=== PATIENT | male | born 1945 | race American Indian/Alaskan Native ===

== ENCOUNTER 2018-10-01 04:49 | Inpatient (IN) | payer MEDICARE ==
--- NOTE | 2018-10-01 05:10 | Emergency Department Report ---
ED Neuro Deficit HPI - General Chief Complaint: Neuro Symptoms/Deficit Stated Complaint: POSS CVA Time Seen by Provider: 10/01/18 05:09 Source: family Mode of arrival: Stretcher Limitations: Altered Mental Status - History of Present Illness Initial Comments: According to patient's , patient was last seen normal at 10:30 PM when the went to bed. This morning she woke up around 5am and noted that the patient was on the floor unable to move or talk. There was said that she slept in a different room and did not see when the patient felt to the floor. EMS was called and patient was brought to the emergency room as a code stroke. Patient is aphasic and could not give any medical history. -: Sudden Location: right arm, right leg, other (aphesia) Presenting Symptoms: Present: Weak/Paralyzed One Side, Altered Mental Status History of same: No Place: home Severity: severe Quality: constant Improves With: none Worsens With: none On Anticoagulants: No Context: sudden onset Associated Symptoms: denies other symptoms Treatments Prior to Arrival: none - Related Data Home Medications: Home Medications Medication Instructions Recorded Confirmed Last Taken Lisinopril 20 mg PO DAILY 10/01/18 10/01/18 Unknown metFORMIN 1 gm PO DAILY 10/01/18 10/01/18 Unknown Allergies/Adverse Reactions: Allergies Allergy/AdvReac Type Severity Reaction Status Date / Time No Known Allergies Allergy Unverified 10/01/18 04:51 ED Review of Systems ROS: Stated complaint: POSS CVA Other details as noted in HPI Comment: Unobtainable due to pts medical conditions (Aphesia and altered mental status.) ED Past Medical Hx - Past Medical History Hx Hypertension: Yes Hx Diabetes: Yes Additional medical history: BPH - Surgical History Past Surgical History?: No - Social History Smoking Status: Never Smoker Substance Use Type: None - Medications Home Medications: Home Medications Medication Instructions Recorded Confirmed Last Taken Type Lisinopril 20 mg PO DAILY 10/01/18 10/01/18 Unknown History metFORMIN 1 gm PO DAILY 10/01/18 10/01/18 Unknown History ED Neuro Physical Exam - General Limitations: Altered Mental Status, Physical Limitation (Aphesia) General appearance: alert Suspected Stroke: Yes - Head Head exam: Present: atraumatic - Eye Eye exam: Present: normal appearance, PERRL - ENT ENT exam: Present: mucous membranes moist - Neck Neck exam: Present: normal inspection, full ROM - Respiratory Respiratory exam: Present: normal lung sounds bilaterally. Absent: respiratory distress, wheezes - Cardiovascular Cardiovascular Exam: Present: normal rhythm, tachycardia, normal heart sounds - GI/Abdominal GI/Abdominal exam: Present: soft, normal bowel sounds. Absent: distended, tenderness, guarding, rebound - Extremities Exam Extremities exam: Present: normal inspection, normal capillary refill, other (Right sided paralysis.) - Back Exam Back exam: Present: normal inspection - Neurological Exam Neurological exam: Present: alert - NIHSS Assessment Interval: Baseline 1a. Level of Consciousness: alert/keenly responsive 1b. LOC Questions: aphasic 1c. LOC Commands: performs 1 task correctly 2. Best Gaze: forced deviation 3. Visual: complete hemianopia 4. Facial Palsy: minor paralysis 5b. Motor Arm Right: no movement 5a. Motor Arm Left: no drift 6a. Motor Leg Left: no movement 6b. Motor Leg Right: drift 7. Limb Ataxia: present 1 limb 8. Sensory: severe/total sensory loss 9. Best Language: mute/global aphasia 10. Dysarthria: mute/anarrthric 11. Extinction/Inattention: complete neglect Total Score: 27 Stroke Severity: Severe Stroke - Psychiatric Psychiatric exam: Present: flat affect - Skin Skin exam: Present: warm, dry, intact ED Course Vital Signs 10/01/18 10/01/18 10/01/18 04:53 05:04 05:15 Temperature 98 F Pulse Rate 102 H 102 H Respiratory 14 16 Rate Blood Pressure 182/119 173/122 O2 Sat by Pulse 98 77 L 95 Oximetry 10/01/18 10/01/18 10/01/18 05:30 05:42 05:45 Temperature Pulse Rate 105 H 103 H Respiratory 19 16 21 Rate Blood Pressure 171/120 155/115 O2 Sat by Pulse 99 100 99 Oximetry - Consultations Consultation #1: 10/01/18 05:17 I consulted the teleneurologist sales development consultant Dr Caballero. He recommend NO TPA since patient is out of the window for TPA. He wants patient to be given Aspirin [place] and admitted to the hospitalist for inpatient management. 10/01/18 06:16 10/01/18 06:22 Consultation #2: 10/01/18 06:15 Patient will be admitted by Dr Aleman. - Lab Data Result diagrams: 10/01/18 05:20 10/01/18 05:20 Lab Results 10/01/18 10/01/18 10/01/18 Range/Units 05:20 05:20 05:20 WBC 9.6 (4.5-11.0) K/mm3 RBC 4.38 (3.65-5.03) M/mm3 Hgb 14.4 (11.8-15.2) gm/dl Hct 41.6 (35.5-45.6) % MCV 95 H (84-94) fl MCH 33 H (28-32) pg MCHC 35 H (32-34) % RDW 13.9 (13.2-15.2) % Plt Count 172 (140-440) K/mm3 Lymph % (Auto) 9.3 L (13.4-35.0) % [place] % (Auto) 4.8 (0.0-7.3) % Eos % (Auto) 0.0 (0.0-4.3) % Baso % (Auto) 0.5 (0.0-1.8) % Lymph # 0.9 L (1.2-5.4) K/mm3 [place] # 0.5 (0.0-0.8) K/mm3 Eos # 0.0 (0.0-0.4) K/mm3 Baso # 0.0 (0.0-0.1) K/mm3 Seg Neutrophils % 85.4 H (40.0-70.0) % Seg Neutrophils # 8.2 H (1.8-7.7) K/mm3 PT 13.7 (12.2-14.9) Sec. INR 0.99 (0.87-1.13) APTT 23.7 L (24.2-36.6) Sec. Thrombin Time (15.1-19.6) Sec. Sodium 139 (137-145) mmol/L Potassium 3.8 (3.6-5.0) mmol/L Chloride 100.5 (98-107) mmol/L Carbon Dioxide 25 (22-30) mmol/L Anion Gap 17 mmol/L BUN 12 (9-20) mg/dL Creatinine 0.8 (0.8-1.5) mg/dL Estimated GFR > 60 ml/min BUN/Creatinine Ratio 15 % Glucose 299 H (75-100) mg/dL Calcium 9.4 (8.4-10.2) mg/dL Total Bilirubin (0.1-1.2) mg/dL Direct Bilirubin (0-0.2) mg/dL AST (5-40) units/L ALT (7-56) units/L Alkaline Phosphatase (35-129) units/L Troponin T < 0.010 (0.00-0.029) ng/mL Total Protein (6.3-8.2) g/dL Albumin (3.9-5) g/dL Albumin/Globulin Ratio % 10/01/18 10/01/18 Range/Units 05:20 05:20 WBC (4.5-11.0) K/mm3 RBC (3.65-5.03) M/mm3 Hgb (11.8-15.2) gm/dl Hct (35.5-45.6) % MCV (84-94) fl MCH (28-32) pg MCHC (32-34) % RDW (13.2-15.2) % Plt Count (140-440) K/mm3 Lymph % (Auto) (13.4-35.0) % [place] % (Auto) (0.0-7.3) % Eos % (Auto) (0.0-4.3) % Baso % (Auto) (0.0-1.8) % Lymph # (1.2-5.4) K/mm3 [place] # (0.0-0.8) K/mm3 Eos # (0.0-0.4) K/mm3 Baso # (0.0-0.1) K/mm3 Seg Neutrophils % (40.0-70.0) % Seg Neutrophils # (1.8-7.7) K/mm3 PT (12.2-14.9) Sec. INR (0.87-1.13) APTT (24.2-36.6) Sec. Thrombin Time 17.8 (15.1-19.6) Sec. Sodium (137-145) mmol/L Potassium (3.6-5.0) mmol/L Chloride (98-107) mmol/L Carbon Dioxide (22-30) mmol/L Anion Gap mmol/L BUN (9-20) mg/dL Creatinine (0.8-1.5) mg/dL Estimated GFR ml/min BUN/Creatinine Ratio % Glucose (75-100) mg/dL Calcium (8.4-10.2) mg/dL Total Bilirubin 0.40 (0.1-1.2) mg/dL Direct Bilirubin < 0.2 (0-0.2) mg/dL AST 18 (5-40) units/L ALT 12 (7-56) units/L Alkaline Phosphatase 81 (35-129) units/L Troponin T (0.00-0.029) ng/mL Total Protein 7.5 (6.3-8.2) g/dL Albumin 4.3 (3.9-5) g/dL Albumin/Globulin Ratio 1.3 % Lab Results 10/01/18 10/01/18 10/01/18 Range/Units 05:20 05:20 05:20 WBC 9.6 (4.5-11.0) K/mm3 RBC 4.38 (3.65-5.03) M/mm3 Hgb 14.4 (11.8-15.2) gm/dl Hct 41.6 (35.5-45.6) % MCV 95 H (84-94) fl MCH 33 H (28-32) pg MCHC 35 H (32-34) % RDW 13.9 (13.2-15.2) % Plt Count 172 (140-440) K/mm3 Lymph % (Auto) 9.3 L (13.4-35.0) % [place] % (Auto) 4.8 (0.0-7.3) % Eos % (Auto) 0.0 (0.0-4.3) % Baso % (Auto) 0.5 (0.0-1.8) % Lymph # 0.9 L (1.2-5.4) K/mm3 [place] # 0.5 (0.0-0.8) K/mm3 Eos # 0.0 (0.0-0.4) K/mm3 Baso # 0.0 (0.0-0.1) K/mm3 Seg Neutrophils % 85.4 H (40.0-70.0) % Seg Neutrophils # 8.2 H (1.8-7.7) K/mm3 PT 13.7 (12.2-14.9) Sec. INR 0.99 (0.87-1.13) APTT 23.7 L (24.2-36.6) Sec. Thrombin Time (15.1-19.6) Sec. Sodium 139 (137-145) mmol/L Potassium 3.8 (3.6-5.0) mmol/L Chloride 100.5 (98-107) mmol/L Carbon Dioxide 25 (22-30) mmol/L Anion Gap 17 mmol/L BUN 12 (9-20) mg/dL Creatinine 0.8 (0.8-1.5) mg/dL Estimated GFR > 60 ml/min BUN/Creatinine Ratio 15 % Glucose 299 H (75-100) mg/dL Calcium 9.4 (8.4-10.2) mg/dL Total Bilirubin (0.1-1.2) mg/dL Direct Bilirubin (0-0.2) mg/dL AST (5-40) units/L ALT (7-56) units/L Alkaline Phosphatase (35-129) units/L Troponin T < 0.010 (0.00-0.029) ng/mL Total Protein (6.3-8.2) g/dL Albumin (3.9-5) g/dL Albumin/Globulin Ratio % 10/01/18 10/01/18 Range/Units 05:20 05:20 WBC (4.5-11.0) K/mm3 RBC (3.65-5.03) M/mm3 Hgb (11.8-15.2) gm/dl Hct (35.5-45.6) % MCV (84-94) fl MCH (28-32) pg MCHC (32-34) % RDW (13.2-15.2) % Plt Count (140-440) K/mm3 Lymph % (Auto) (13.4-35.0) % [place] % (Auto) (0.0-7.3) % Eos % (Auto) (0.0-4.3) % Baso % (Auto) (0.0-1.8) % Lymph # (1.2-5.4) K/mm3 [place] # (0.0-0.8) K/mm3 Eos # (0.0-0.4) K/mm3 Baso # (0.0-0.1) K/mm3 Seg Neutrophils % (40.0-70.0) % Seg Neutrophils # (1.8-7.7) K/mm3 PT (12.2-14.9) Sec. INR (0.87-1.13) APTT (24.2-36.6) Sec. Thrombin Time 17.8 (15.1-19.6) Sec. Sodium (137-145) mmol/L Potassium (3.6-5.0) mmol/L Chloride (98-107) mmol/L Carbon Dioxide (22-30) mmol/L Anion Gap mmol/L BUN (9-20) mg/dL Creatinine (0.8-1.5) mg/dL Estimated GFR ml/min BUN/Creatinine Ratio % Glucose (75-100) mg/dL Calcium (8.4-10.2) mg/dL Total Bilirubin 0.40 (0.1-1.2) mg/dL Direct Bilirubin < 0.2 (0-0.2) mg/dL AST 18 (5-40) units/L ALT 12 (7-56) units/L Alkaline Phosphatase 81 (35-129) units/L Troponin T (0.00-0.029) ng/mL Total Protein 7.5 (6.3-8.2) g/dL Albumin 4.3 (3.9-5) g/dL Albumin/Globulin Ratio 1.3 % - EKG Data -: EKG Interpreted by Ia EKG shows normal: sinus rhythm Rate: tachycardia (100) When compared to previous EKG there are: previous EKG unavailable Interpretation: nonspecific ST-T wave gladys 10/01/18 06:17 No STEMI. - Radiology Data Radiology results: report reviewed, image reviewed - Medical Decision Making Acute CVA. Uncontrolled Hypertension. - Core Measures AMI Core Measures Followed: Yes - Thrombolytic Inclusion/Exclusion Thrombolytic Exclusion Criteria: Symptom Onset > 3 Hours Thrombolytic Contraindications: Diastolic Pressure > 110 Critical Care Time: Yes Critical care time in (mins) excluding proc time.: 50 Critical care attestation.: If time is entered above; I have spent that time in minutes in the direct care of this critically ill patient, excluding procedure time. ED Disposition Clinical Impression: Uncontrolled hypertension, Poorly controlled diabetes mellitus, Acute right- sided weakness CVA (cerebral vascular accident) Qualifiers: CVA mechanism: unspecified Qualified Code(s): I63.9 - Cerebral infarction, unspecified Disposition: DC-09 OP ADMIT IP TO THIS HOSP Is pt being admited?: Yes Does the pt Need Aspirin: Yes Condition: Stable Instructions: Diabetes Mellitus Type 2 in Adults (ED), Hypertension (ED) Referrals: PRIMARY CARE, [Primary Care Provider] - 3-5 Days Time of Disposition: 06:20
--- NOTE | 2018-10-01 05:12 | Cat Scan Report ---
FINAL REPORT EXAM: CT HEAD/BRAIN WO CON HISTORY: neuro deficits < 6hrs or sx present upon awakening TECHNIQUE: Routine axial imaging was obtained of the brain without IV contrast. There are no previou s studies available for comparison. FINDINGS: There is effacement of the hi white matter junction in the left frontal and left temporal lobes wit h diminished attenuation compatible with an acute left MCA distribution nonhemorrhagic infarct. There is also an associated hyperdense left MCA sign. There is minimal mass effect on the left lateral gabby tricle. There is diminished attenuation of the periventricular white matter compatible with chronic i schemic white matter disease changes. The basal cisterns appear normal. There is age related volume l oss. The visualized sinuses are clear. The mastoid air cells are well pneumatized. The calvarium appe ars intact. IMPRESSION: Acute left middle cerebral artery distribution infarct in the left frontal and left temporal lobes wi thout associated hemorrhage. Minimal mass effect on the left lateral ventricle. Associated left hyperdense MCA sign. Chronic ischemic white matter disease changes also noted. The acute stroke findings were discussed with at 5:10 a.m. on 10/01/2018.
[2018-10-01 05:33] LABS: Basophils % (Auto) 0.5 % (0.0-1.8); Hematocrit 41.6 % (35.5-45.6); Hemoglobin 14.4 gm/dl (11.8-15.2); Lymphocytes # (Auto) 0.9 K/mm3 (1.2-5.4); Lymphocytes % (Auto) 9.3 % (13.4-35.0); Mean Corpuscular HGB Conc 35 % (32-34); Mean Corpuscular Volume 95 fl (84-94); Monocytes # (Auto) 0.5 K/mm3 (0.0-0.8); Monocytes % (Auto) 4.8 % (0.0-7.3); Platelet Count 172 K/mm3 (140-440); Red Blood Count 4.38 M/mm3 (3.65-5.03); Red Cell Distribution Width 13.9 % (13.2-15.2)
[2018-10-01 05:42] LABS: INR 0.99 (0.87-1.13)
[2018-10-01 05:43] LABS: Partial Thromboplastin Time 23.7 Sec. (24.2-36.6)
[2018-10-01 05:49] LABS: BUN/Creatinine Ratio 15; Blood Urea Nitrogen 12 mg/dL (9-20); Calcium 9.4 mg/dL (8.4-10.2); Hemolysis Index 19
[2018-10-01 05:53] LABS: Alanine Aminotransferase 12 units/L (7-56); Albumin 4.3 g/dL (3.9-5)
[2018-10-01 06:00] LABS: Bilirubin,Direct < 0.2 mg/dL (0-0.2)
[2018-10-01] MEDS ORDERED: ASPIRIN PR ONE ×3 (06:21→11:13)
[2018-10-01] MEDS ORDERED: D50W (25GM) Syringe IV PRN (06:51)
[2018-10-01] MEDS ORDERED: TYLENOL PR PRN (07:02)
[2018-10-01] MEDS ORDERED: NACL 0.9% 1000 ML 1,000 ML IV SCH (08:00)
[2018-10-01] MEDS ORDERED: NACL 0.9% 1000 ML 1,000 ML ONE ×2 (08:19→08:21)
[2018-10-01] MEDS ORDERED: HumuLIN R ONE ×3 (08:20→15:27)
[2018-10-01] MEDS: HumuLIN R SUB-Q SCH ×5 (08:21→22:52)
--- NOTE | 2018-10-01 08:39 | History and Physical Report ---
CHIEF COMPLAINT: Change in mental status. OTHER COMPLAINT: Includes aphasia or loss of speech and inability to use the right side. HISTORY OF PRESENTING ILLNESS: The patient is a 73-year-old male who was noted by to be okay last night until early in the morning when the found him on the ground about 5 a.m. and unable to talk and unable to move his right side. There was no history of chest pain. There is no prior history of shortness of breath, fever, chills, nausea, vomiting or shortness of breath before the patient went to bed and the called EMS after she found the patient on the ground. EMS brought the patient to the Emergency Room where he was evaluated and subjected to tele neurology evaluation during which the determination was made not to give the patient thrombolytic therapy because of time lag. PAST MEDICAL HISTORY: Pertinent for hypertension, diabetes mellitus, benign prostatic hypertrophy, and hypercholesterolemia. PAST SURGICAL HISTORY: Unremarkable. FAMILY HISTORY: Family history is noncontributory. SOCIAL HISTORY: The patient does not smoke, does not drink alcohol, and does not use illicit drugs and lives with family. HOME MEDICATIONS: The patient is on lisinopril 20 mg by mouth daily and metformin 1 gram by mouth daily. ALLERGIES: There are no known drug allergies. REVIEW OF SYSTEMS: CONSTITUTIONAL: There is no fever, no chills, no diaphoresis. HEENT: There is no headache or sore throat. CARDIOVASCULAR SYSTEM: There is no chest pain or orthopnea. RESPIRATORY SYSTEM: There is no shortness of breath or cough. GASTROINTESTINAL SYSTEM: There is no nausea, no vomiting, no abdominal pain, diarrhea or constipation. NEUROLOGICAL SYSTEM: There is no numbness, no dizziness, no altered mental status. There is aphasia with complete paralysis of the right side of the body. There is also visual impairment and change in mental status. MUSCULOSKELETAL SYSTEM: There is no joint pain or swelling. DERMATOLOGICAL SYSTEM: There is no skin rash or itching. GENITOURINARY SYSTEM: There is no dysuria, hematuria or flank pain. Rest system review is normal. PERTINENT LABORATORY AND IMAGING STUDIES: The patient has CT of the head without contrast done that shows acute left middle cerebral artery distribution infarct in the left frontal and left temporal lobe without associated hemorrhage. There is minimal mass effect on the left lateral ventricle, associated left hyperdense middle cerebral artery sign. There is also a finding of chronic ischemic white matter disease changes also noted. Lab results; the patient has CBC done with normal white count, normal hemoglobin and normal hematocrit with elevated MCV of 95 and elevated segmented neutrophils of 85% on the CBC differential. The patient's coagulation studies were unremarkable. Chemistry was unremarkable except for elevated glucose level of 299. The patient's troponin level came back normal. DIAGNOSES: 1. Acute cerebrovascular accident with right-sided paralysis. 2. Aphasia. PLAN OF CARE: 1. The patient will be admitted to ICU. 2. The patient will have critical care consult with Dr. Alvarado for ICU admission. 3. The patient will have MRI of the head and MRA of the neck done this morning. 4. The patient will have physical therapy consult for evaluation and treatment as well as speech therapy consult for evaluation and treatment. 5. The patient will have Neurology consult with Dr. García tomorrow 10/02/2018 since Neurology is not around today. 6. The patient will be n.p.o. until swallow test is passed. 7. The patient will be on rectal aspirin 150 mg daily until the patient is able to take something by mouth. 8. The patient will be on IV normal saline 75 mL an hour. 9. The patient will be on sequential compressive device for DVT prophylaxis. 10. The patient will be on Accu-Chek q. 4 hours followed by low-dose sliding scale. 11. The patient will be on Tylenol 650 mg rectally every 4 hours for fever and headache and will be on oxygen by nasal cannula at 2 liters per minute. 12. The patient will have bilateral carotid Doppler done this morning as well as 2D echo for evaluation of the acute stroke. JOB# [id number] OCN/NTS MTDD
[2018-10-01 08:40] LABS: Chol/HDL Ratio 4.1 %
--- NOTE | 2018-10-01 10:54 | Vascular Lab Report ---
FINAL REPORT EXAM: VL CAROTID DUPLEX BILAT HISTORY: CVA WITH RIGHT SIDED PARALYSIS AND APHASIA COMPARISON: None. TECHNIQUE: Duplex Doppler ultrasound of the carotid arteries was performed. FINDINGS: There is heterogeneous plaque in the right internal carotid artery causing less than 50 percent steno sis. The right common carotid artery, external carotid artery, and vertebral artery are patent. There is antegrade flow in the right vertebral artery. There is heterogeneous plaque in the distal left common carotid artery and proximal left internal car otid artery, causing less than 50 percent stenosis. The left external carotid artery is patent. There is antegrade flow in the left vertebral artery. Peak systolic velocities (cm/sec) are as follows: Right common carotid artery: 95.1 Right internal carotid artery: 47.5 Right external carotid artery: 64.5 Left common carotid artery: 70.7 Left internal carotid artery: 75 Left external carotid artery: 75 Peak systolic velocity ratio between the right internal carotid artery and the right common carotid a rtery: 0.5 Peak systolic velocity ratio between the left internal carotid artery and left common carotid artery: 1.06 IMPRESSION: Less than 50 percent stenosis of the right internal carotid artery. Less than 50 percent stenosis of the left common carotid artery and internal carotid artery.
[2018-10-01] MEDS: ASPIRIN PR SCH (11:15)
--- NOTE | 2018-10-01 16:14 | Event Note ---
Date: 10/01/18 Patient presents with symptoms of acute stroke. CT head confirms acute ischemic stroke left MCA. Continue Aspirin. Continue current management.
[2018-10-02] MEDS: HumuLIN R SUB-Q SCH ×5 (04:50→20:17)
[2018-10-02 06:28] LABS: Hematocrit 38.8 % (35.5-45.6); Hemoglobin 13.4 gm/dl (11.8-15.2); Mean Corpuscular HGB Conc 34 % (32-34); Mean Corpuscular Volume 95 fl (84-94); Platelet Count 166 K/mm3 (140-440)
[2018-10-02 06:40] LABS: BUN/Creatinine Ratio 11; Blood Urea Nitrogen 8 mg/dL (9-20); Calcium 8.8 mg/dL (8.4-10.2); Hemolysis Index 14
--- NOTE | 2018-10-02 13:37 | Magnetic Resonance Report ---
MRI OF THE BRAIN WITHOUT CONTRAST: HISTORY: Left MCA stroke PROCEDURE: Multiplanar, multisequence MR imaging of the brain without IV contrast was performed. FINDINGS: CT head dated 10/01/18 was reviewed. MRI demonstrates a large area of diffusion restriction throughout the left MCA distribution measuring up to 12.5 x 4.8 cm in axial plane. There is edema throughout the left MCA distribution on the T2 weighted images. There is mild mass effect on the left lateral ventricle but no significant midline shift. The gradient images demonstrate minimal hemorrhagic transformation in the left subinsular region but no uncontained intraparenchymal hemorrhage. There is mild diffuse cortical volume loss and mild nonspecific chronic white matter changes. No mass or extra-axial fluid collection is identified. The midline structures are central. The basal cisterns are patent. Normal ventricular size. The orbital cavities and sella turcica demonstrate no abnormality. The visualized paranasal sinuses and mastoid air cells are well aerated. IMPRESSION: Large ischemic insult throughout the left MCA distribution. Minimal hemorrhagic transformation is identified as described above. Volume loss. Nonspecific chronic white matter changes.
--- NOTE | 2018-10-02 13:40 | Magnetic Resonance Report ---
MRA NECK WITHOUT CONTRAST HISTORY: CVA with right sided paralysis. TECHNIQUE: [id number] imaging with MIP reformations of the neck is submitted. FINDINGS: The bilateral carotid and vertebral systems appear widely patent and free of hemodynamically significant stenosis, aneurysm, or dissection. IMPRESSION: Normal MR angiography of the neck.
--- NOTE | 2018-10-02 13:41 | Magnetic Resonance Report ---
MRA HEAD WITHOUT CONTRAST HISTORY: CVA with right-sided paralysis. [id number] imaging with MIP reformations of the [place] of [place] is submitted. FINDINGS: The images demonstrate complete occlusion of the left M1 segment 1 cm from its origin. The left XENIA, right XENIA and right MCA are widely patent. The vertebrobasilar system and bilateral console attendant are widely patent. No evidence for aneurysm. IMPRESSION: Complete occlusion of the left M1 segment.
[2018-10-02] MEDS: ASPIRIN PR SCH (14:46)
[2018-10-02] MEDS ORDERED: APRESOLINE IV PRN (15:15)
--- NOTE | 2018-10-02 15:30 | Progress Note ---
Assessment and Plan Assessment and plan: Acute ischemic stroke with hemorrhagic conversion Admitted to [facility] Discussed with Dr. Cosme, Neurologist. Patient will need transfer to [place] Hypertensive emergency. BP uncontrolled Will transfer to ICU Start Garret gilmore Diabetes mellitus type 2 Fingerstick Hyperlipidemia Full code History Interval history: Unable to talk Hospitalist Physical - Physical exam Narrative exam: GEN: Not in acute distress, lying in bed HEENT: Normocephalic, atraumatic, Neck: supple, No JVD Lungs: Bilateral basal crackles, no wheeze Heart:S1 and S2 regular, no murmurs, rubs or gallop, Abd:soft, non tender, non distended, normal bowel sounds Ext: Bilateral pedal edema, no clubbing or cyanosis Neuro: Lethargic,aphasic, right sided weakness, follows commands - Constitutional Vitals: Temp Pulse Resp BP Pulse Ox 100.4 F H 96 H 19 190/117 97 10/02/18 04:00 10/02/18 15:11 10/02/18 15:11 10/02/18 15:11 10/02/18 15:11 Results - Labs CBC & Chem 7: 10/02/18 05:41 10/02/18 05:41 Labs: Laboratory Last Values WBC 8.7 K/mm3 (4.5-11.0) 10/02/18 05:41 RBC 4.10 M/mm3 (3.65-5.03) 10/02/18 05:41 Hgb 13.4 gm/dl (11.8-15.2) 10/02/18 05:41 Hct 38.8 % (35.5-45.6) 10/02/18 05:41 MCV 95 fl (84-94) H 10/02/18 05:41 MCH 33 pg (28-32) H 10/02/18 05:41 MCHC 34 % (32-34) 10/02/18 05:41 RDW 14.0 % (13.2-15.2) 10/02/18 05:41 Plt Count 166 K/mm3 (140-440) 10/02/18 05:41 Lymph % (Auto) 9.3 % (13.4-35.0) L 10/01/18 05:20 [place] % (Auto) 4.8 % (0.0-7.3) 10/01/18 05:20 Eos % (Auto) 0.0 % (0.0-4.3) 10/01/18 05:20 Baso % (Auto) 0.5 % (0.0-1.8) 10/01/18 05:20 Lymph # 0.9 K/mm3 (1.2-5.4) L 10/01/18 05:20 [place] # 0.5 K/mm3 (0.0-0.8) 10/01/18 05:20 Eos # 0.0 K/mm3 (0.0-0.4) 10/01/18 05:20 Baso # 0.0 K/mm3 (0.0-0.1) 10/01/18 05:20 Seg Neutrophils % 85.4 % (40.0-70.0) H 10/01/18 05:20 Seg Neutrophils # 8.2 K/mm3 (1.8-7.7) H 10/01/18 05:20 PT 13.7 Sec. (12.2-14.9) 10/01/18 05:20 INR 0.99 (0.87-1.13) 10/01/18 05:20 APTT 23.7 Sec. (24.2-36.6) L 10/01/18 05:20 Thrombin Time 17.8 Sec. (15.1-19.6) 10/01/18 05:20 Sodium 140 mmol/L (137-145) 10/02/18 05:41 Potassium 3.6 mmol/L (3.6-5.0) 10/02/18 05:41 Chloride 103.5 mmol/L (98-107) 10/02/18 05:41 Carbon Dioxide 25 mmol/L (22-30) 10/02/18 05:41 Anion Gap 15 mmol/L 10/02/18 05:41 BUN 8 mg/dL (9-20) L 10/02/18 05:41 Creatinine 0.7 mg/dL (0.8-1.5) L 10/02/18 05:41 Estimated GFR > 60 ml/min 10/02/18 05:41 BUN/Creatinine Ratio 11 % 10/02/18 05:41 Glucose 197 mg/dL (75-100) H 10/02/18 05:41 POC Glucose 226 (70-105) H 10/02/18 14:55 Calcium 8.8 mg/dL (8.4-10.2) 10/02/18 05:41 Total Bilirubin 0.40 mg/dL (0.1-1.2) 10/01/18 05:20 Direct Bilirubin < 0.2 mg/dL (0-0.2) 10/01/18 05:20 AST 18 units/L (5-40) 10/01/18 05:20 ALT 12 units/L (7-56) 10/01/18 05:20 Alkaline Phosphatase 81 units/L (35-129) 10/01/18 05:20 Troponin T < 0.010 ng/mL (0.00-0.029) 10/01/18 05:20 Total Protein 7.5 g/dL (6.3-8.2) 10/01/18 05:20 Albumin 4.3 g/dL (3.9-5) 10/01/18 05:20 Albumin/Globulin Ratio 1.3 % 10/01/18 05:20 Triglycerides 73 mg/dL (2-149) 10/01/18 08:11 Cholesterol 230 mg/dL (50-199) H 10/01/18 08:11 LDL Cholesterol Direct 169 mg/dL (50-130) H 10/01/18 08:11 HDL Cholesterol 56 mg/dL (40-59) 10/01/18 08:11 Cholesterol/HDL Ratio 4.10 % 10/01/18 08:11
--- NOTE | 2018-10-02 16:19 | Consultation ---
History of Present Illness Consult date: 10/02/18 Requesting physician: TERENCE SANCHEZ Reason for Consult: stroke Chief complaint: aphasia, right side weakness History of present illness: This 73-year-old -[place] male was admitted 2 days ago having been found on the floor by his earlier that morning after having last been well at 10:30 the previous evening, with right-sided weakness and aphasia. CT scan shows early infarct in the left MCA distribution with a little bit of effacement of the left frontal horn. Current MRI shows more substantial effacement of the left frontal horn and large left MCA acute stroke with some hemorrhagic transformation on GRE sequence in the left sub-caudate or putaminal region. I discussed this finding with Dr. Sanchez and suggested ICU transfer and hopefully transfer to [facility] since he may need likely need hypertonic saline for which 24/7 neurology coverage is needed plus neurosurgical backup since he may need craniotomy for decompression as edema gets worse. MRA of neck is normal. MRA of brain shows occlusion of proximal left MCA. Past History Past Medical History: diabetes, hypertension Past Surgical History: Other (unknown since nonverbal and family not available) Social history: , other (arrest is unknown per chart since nonverbal and no family available). denies: smoking Family history: other (no family available and he is nonverbal) Medications and Allergies Allergies Allergy/AdvReac Type Severity Reaction Status Date / Time No Known Allergies Allergy Unverified 10/01/18 04:51 Home Medications Medication Instructions Recorded Confirmed Last Taken Type Lisinopril 20 mg PO DAILY 10/01/18 10/01/18 Unknown History metFORMIN 1 gm PO DAILY 10/01/18 10/01/18 Unknown History Active Meds: Active Medications Acetaminophen (Tylenol) 650 mg NE Q4H PRN PRN Reason: Pain, Mild (1-3) Dextrose (D50w (25gm) Syringe) 50 ml IV PRN PRN PRN Reason: Hypoglycemia Hydralazine HCl (Apresoline) 10 mg IV Q4HR PRN PRN Reason: For SBP>170 or DBP>110 Last Admin: 10/02/18 16:04 Dose: 10 mg Documented by: Sodium Chloride (Nacl 0.9% 1000 Ml) 1,000 mls @ 75 mls/hr IV DIRECT NAVYA Last Admin: 10/01/18 08:26 Dose: 75 mls/hr Documented by: Insulin Human Regular (Humulin R) 0 units SUB-Q Q4H [facility], [facility]; Protocol Last Admin: 10/02/18 15:30 Dose: Not Given Documented by: Review of Systems ROS unobtainable: due to mental status (nonverbal) Physical Examination - Vital Signs Vital Signs: Vital Signs Temp Pulse Resp BP Pulse Ox 98 F 102 H 14 182/119 98 10/01/18 04:53 10/01/18 04:53 10/01/18 04:53 10/01/18 04:53 10/01/18 04:53 - Physical Exam Narrative exam: General Appearance: well developed but overweight (per BMI) early 70s - [place] male in NAD, nonverbal. HEENT: atraumatic, normocephalic; no bruits, 2+ Sue without soreness or induration or enlargement, sclerae nonicteric. Oropharynx pink and moist. Neck: supple, no bruits. Heart: no murmur or extra sounds. Extremities: no clubbing or cyanosis but has trace edema right. 2+ dorsalis pe dis pulses bilaterally. Neurologic Exam: Mental Status: Awake, alert, no speech, no commands though vehicle service attendant with left hand a bit during my attempt to greet him, cannot respond to question of headache e gabby with pantomime. Cranial Nerves: paul grossly absent to the right, no papilledema, SVPs present , PERRL, EOMs decreased spontaneously to the right but partly positive Doll's eyes though less to right lateral excursion, facial sensation seems decreased to pinprick on the right but moves head a little to left stimulation, no facial grimace on either side to pinprick or supraorbital pressure, Roth cannot be assessed, palate rises symmetrically to gag testing which is however negative, shoulder shrug cannot be done, cannot protrude tongue even to imitation. Cerebellar: wrist to nose intact left spontaneously and to pantomime but no motion left, left heel motion down sheet of bed without dysmetria but cannot do heel to hong on the left or right. Sensory: pinprick absent right to reaction and also in left hand/arm but withdraws left foot. Cannot do other testing. Motor Exam Upper Extremities: Plegic right without increased tone. No clinical research tech, no withdrawal to palmar rub or supraorbital pressure. No atrophy or fasciculations are noted visually. Motor Exam Lower Extremities: Plegic right, hold up left leg 6 inches off bed when I place it there with 4+ quad strength but does not wiggle foot to command or do pedal push or anterior tibial testing. Tone is normal. No atrophy or fasciculations are noted visually. Reflexes: Palmomental, snout and jaw jerk are negative. Triceps are 2 right and trace left, biceps and brachioradialis are 2+ right and 1+ left. Thad's is negative bilaterally. Knee jerks are 1+ right and 2+ left and ankle jerks are 1+ right and 1 left without clonus. Toes are downgoing bilaterally to Babinski testing. - Assessment Assessment Interval: Baseline - Level of Consciousness 1a. Level of Consciousness: alert/keenly responsive - LOC Questions 1b. LOC Questions: aphasic - LOC Command 1c. LOC Commands: performs 1 task correctly - Best Gaze 2. Best Gaze: forced deviation - Visual 3. Visual: complete hemianopia - Facial Palsy 4. Facial Palsy: minor paralysis - Motor Arm 5b. Motor Arm Right: no movement - Motor Leg 6a. Motor Leg Left: no movement - Limb Ataxia 7. Limb Ataxia: present 1 limb - Sensory 8. Sensory: severe/total sensory loss - Best Language 9. Best Language: mute/global aphasia - Dysarthria 10. Dysarthria: mute/anarrthric - Extinction and Inattention 11. Extinction/Inattention: complete neglect Results - Laboratory Findings CBC and BMP: 10/02/18 05:41 10/02/18 05:41 Abnormal Lab Findings: Abnormal Labs 10/01/18 10/01/18 10/01/18 05:20 05:20 05:20 MCV 95 H MCH 33 H MCHC 35 H Lymph % (Auto) 9.3 L Lymph # 0.9 L Seg Neutrophils % 85.4 H Seg Neutrophils # 8.2 H APTT 23.7 L BUN Creatinine Glucose 299 H POC Glucose Cholesterol LDL Cholesterol Direct 10/01/18 10/01/18 10/01/18 08:09 08:11 11:22 MCV MCH MCHC Lymph % (Auto) Lymph # Seg Neutrophils % Seg Neutrophils # APTT BUN Creatinine Glucose POC Glucose 251 H 205 H Cholesterol 230 H LDL Cholesterol Direct 169 H 02/17/19 02/17/19 02/17/19 15:03 19:47 22:51 MCV MCH MCHC Lymph % (Auto) Lymph # Seg Neutrophils % Seg Neutrophils # APTT BUN Creatinine Glucose POC Glucose 205 H 211 H 182 H Cholesterol LDL Cholesterol Direct 10/02/18 10/02/18 10/02/18 03:56 05:41 05:41 MCV 95 H MCH 33 H MCHC Lymph % (Auto) Lymph # Seg Neutrophils % Seg Neutrophils # APTT BUN 8 L Creatinine 0.7 L Glucose 197 H POC Glucose 200 H Cholesterol LDL Cholesterol Direct 10/02/18 10/02/18 06:45 14:55 MCV MCH MCHC Lymph % (Auto) Lymph # Seg Neutrophils % Seg Neutrophils # APTT BUN Creatinine Glucose POC Glucose 182 H 226 H Cholesterol LDL Cholesterol Direct Assessment and Plan Impression: 1. Large left MCA acute infarct 2. Hemorrhaghic transformation of left MCA infarct 3. Occlusion left MCA 4. Possibly malignant hypertension Plan: 1. We will order some hypertonic saline needs transferred to [facility] or [facility] to be able to continue this with 24/ neurologic supervision. I will aim for sodium around 158. 2. Needs to be at a facility such as those listed above to have neurosurgical backup since he may need craniotomy to decompress expected worsening of edema in the next day or 2. 3. Discussed with Dr. Sanchez who agrees he should be in ICU while awaiting transfer, in order to get Cardene drip to keep systolic around 170 instead of the current 190. Needs closer ICU supervision due to need for hypertonic saline as well. 45 minutes critical care time spent with this patient. This included review of 100s of MRI and MRA images. Thank you for an interesting consultation on this unfortunate early 70s man.
--- NOTE | 2018-10-02 16:22 | XRay Report ---
FINAL REPORT EXAM: XR ABDOMEN 1V AP HISTORY: Dobhoff placement TECHNIQUE: Single view of the abdomen. PRIORS: None currently available. FINDINGS: Enteric tube tip is present within the mid stomach. Bowel gas appearance is nonspecific and non-distended. There is no pneumoperitoneum. There is no air fluid level. There is no obstructive pattern. Mild stool is present. There are no suspicious calcifications overlying the renal shadows. IMPRESSION: Nonspecific nonobstructive bowel gas pattern.
--- NOTE | 2018-10-02 16:34 | Event Note ---
Date: 10/02/18 We were consulted for ICU management but patient was admitted to IMCU. Will cancel consult. Please re-consult if need be for pulmonary issues.
[2018-10-02] MEDS ORDERED: SIMPLE SYRUP FEEDTUBE PRN ×2 (17:17)
[2018-10-02] MEDS ORDERED: SODIUM BICARBONATE FEEDTUBE PRN (17:17)
[2018-10-02] MEDS ORDERED: PANCREAZE DR 10,500 UNIT FEEDTUBE PRN (17:17)
--- NOTE | 2018-10-02 17:23 | Event Note ---
Date: 10/02/18 I called [facility] line. spoke to Dr. Chapman, Ob Tech. She will accept patient pending bed availability.
[2018-10-02] MEDS ORDERED: NACL 3% 500 ML IV ONE (17:53)
[2018-10-02] MEDS ORDERED: CARDENE 50 MG in NACL 0.9% 250ML 230 ML IV SCH (18:00)
[2018-10-02 18:15] VITALS: BP 158/86
[2018-10-02] MEDS ORDERED: KEPPRA 1,000 MG/NS 0.75% 100ML 1,000 MG/100 ML BAG IV ONE (18:20)
--- NOTE | 2018-10-02 18:25 | Discharge Summary ---
Providers - Providers Date of Admission: 10/01/18 06:21 Date of discharge: 10/02/18 Attending physician: TERENCE EUGENE 10/01/18 06:58 Physical Therapy Evaluation and Treat [CONS] Routine Comment: Reason For Exam: CVA WITH RIGHT SIDED PARALYSIS 10/01/18 07:15 Consult to Physician [CONS] Routine Comment: Chrissy @ [facility] notified @ 07:53- [facility] Consulting Provider: FREYA BELL Physician Instructions: Reason For Exam: ICU ADMISSION FOR ACUTE STROKE 10/01/18 07:30 Speech Therapy Evaluation and Treat [CONS] Routine Reason For Exam: CVA WITH RIGHT SIDED PARALYSIS 10/01/18 07:34 Occupational Therapy Evaluate and Treat [CONS] Routine Comment: Reason For Exam: stroke 10/02/18 06:00 Consult to Physician [CONS] Routine Comment: left message with [facility] as instructed- [facility] Consulting Provider: JESSENIA STEWART Physician Instructions: Reason For Exam: CVA WITH RIGHT SIDED PARALYSIS AND APHASIA 10/02/18 12:39 Consult to Dietitian/Nutrition [CONS] Routine Physician Instructions: Reason For Exam: Reason for Consult: Write/Manage Tube Feeding 10/02/18 16:39 Consult to Physician [CONS] Routine Comment: Consulting Provider: POONAM PAVON Physician Instructions: Reason For Exam: Hospital Fellow,hemorrhagic conversion of stroke Primary care physician: ICING MIXER Hospitalization Condition: Serious Hospital course: Patient is 73 yo with hypertension, diabetes. He was found on floor by in morning with right sided weakness. he was brought to ED by paramedics. Patient was evaluated in ED and Teleneurologist consulted. CT head revealed acute left MCA stroke. Teleneurologist did not recommend tPA because of time lag. Patient was given Aspirin and admitted to [facility] for acute stroke. MRI was done following day revealed acute stroke with hemorrhagic conversion, edema, mild mass effect. Patient was evaluated by Dr Stewart , neurologist and he [facility]. He had hypertensive emergency , was started on Cardene drip, transferred to ICU. I called [facility] line, discussed case and he was accepted and transfer to Dr. Chapman, [place] [facility]. Total time spent on discharge, 33 mins Disposition: [id number] GEN HOSP IP - Discharge Diagnoses (1) Left acute arterial ischemic stroke, MCA (middle cerebral artery) Status: Acute (2) Acute ischemic left MCA stroke Status: Acute (3) Hypertensive emergency Status: Acute (4) Diabetes mellitus type 2 in nonobese Status: Acute (5) Hyperlipidemia Status: Acute Core Measure Documentation - Palliative Care Palliative Care/ Comfort Measures: Not Applicable - Core Measures Any of the following diagnoses?: stroke - Stroke Discharge Requirements Statin for LDL = or >70 mg/dl on DC: Yes Anticoag for atrial fib/atrial flutter: Not Applicable Antithrombotic for ischemic stroke: No Reason for no antithrombotic on DC: Medical Contraindication (Bleed) Exam - Physical Exam Narrative exam: GEN: Not in acute distress, lying in bed HEENT: Normocephalic, atraumatic, Neck: supple, No JVD Lungs:Clear no wheeze Heart:S1 and S2 regular, no murmurs, rubs or gallop, Abd:soft, non tender, non distended, normal bowel sounds Ext: Bilateral pedal edema, no clubbing or cyanosis Neuro: Lethargic,aphasic, right sided weakness, follows commands - Constitutional Vitals: Temp Pulse Resp BP Pulse Ox 101.0 F H 84 10 L 158/86 97 10/02/18 16:00 10/02/18 18:11 10/02/18 18:11 10/02/18 18:11 10/02/18 18:11 Plan Additional Instructions: 1.Transfer to [facility] to Dr. Chapman. 2.Continue Keppra iv 100mg q 12hr. 3.Continue 3% NaCl Follow up with: PRIMARY CAREMD [Primary Care Provider] - 3-5 Days Prescriptions: levETIRAcetam 1000 MG/NS 0.75% [Keppra 1,000 mg/Ns 0.75% 100Ml] 1,000 mg IV Q12H #1 vial
[2018-10-03] MEDS ORDERED: KEPPRA 1,000 MG in NACL 0.9% 100 ML IV SCH (06:00)
[2018-10-03] MEDS ORDERED: KEPPRA 1,000 MG/NS 0.75% 100ML 1,000 MG/100 ML BAG IV SCH (06:00)
== END 2018-10-02 23:17 | disposition short-term general hospital (02) | DRG 64 ==
LOC: ED 04:49 → IMCU 06:21 → CC1 10-02 19:44
PROVIDERS: ADMIT Internal Medicine; ATTEND Internal Medicine
DX: I63.512 Cerebral infarction due to unspecified occlusion or stenosis of left middle cerebral artery (principal); I61.9 Nontraumatic intracerebral hemorrhage, unspecified; I16.1 Hypertensive emergency; G81.91 Hemiplegia, unspecified affecting right dominant side; I10 Essential (primary) hypertension; R47.01 Aphasia; E78.5 Hyperlipidemia, unspecified; N40.0 Benign prostatic hyperplasia without lower urinary tract symptoms; R29.727 NIHSS score 27; E11.9 Type 2 diabetes mellitus without complications; Z79.899 Other long term (current) drug therapy
CPT/HCPCS: 36415; 70450; 70544; 70547; 70551; 74018; 80048; 80061; 80076; 82962; 84295; 84484; 85025; 85027; 85610; 85670; 85730; 87040; 93005; 93010; 93306; 93880; 94760; 96360; 96361; G0378; J0360; J1815; J1953; J7030; J7050